=== PATIENT | female | born 1975 | race African-American/Black ===

== ENCOUNTER 2016-10-03 22:10 | Emergency (ER) | payer MEDICAID ==
[~2016-10-03] VITALS: Ht 170.2 cm; Wt 127.0 kg
[~2016-10-03 22:10] MED LIST: AMLO10TA2 PO; AMLO2.5T; HYDR12.527; HYDR25TA4 PO
[2016-10-03 22:15] VITALS: BP 163/103
[2016-10-04] MEDS ORDERED: HYDROcodone-ACET 10/325MG TAB ONE (01:21)
[2016-10-04] MEDS ORDERED: HYDROcodone-ACET 10/325MG TAB PO ONE (01:30)
== END 2016-10-04 01:47 | disposition home or self-care (01) ==
LOC: ER 22:11
DX: S83.411A Sprain of medial collateral ligament of right knee, initial encounter (principal); M19.90 Unspecified osteoarthritis, unspecified site; I10 Essential (primary) hypertension; F17.210 Nicotine dependence, cigarettes, uncomplicated; W01.0XXA Fall on same level from slipping, tripping and stumbling without subsequent striking against object, initial encounter; Y93.89 Activity, other specified; Y99.8 Other external cause status; Y92.89 Other specified places as the place of occurrence of the external cause
CPT/HCPCS: 73560; 81025

== ENCOUNTER 2016-12-14 07:24 | Emergency (ER) | payer MEDICAID ==
[~2016-12-14] VITALS: Ht 170.2 cm; Wt 133.4 kg
[2016-12-14 08:00] VITALS: BP 192/126
[2016-12-14 08:18] LABS: Urine Bilirubin Negative (Negative); Urine Blood 1+ /uL (Negative); Urine Color Yellow (Yellow); Urine Glucose Normal (Normal); Urine Ketone Negative (Negative); Urine Nitrite Negative (Negative); Urine RBC 2 /hpf (0 - 4); Urine Squamous Epithelial Cell FEW /hpf (<5); Urine Urobilinogen Normal (Negative)
[2016-12-14 08:36] LABS: Eosinophils # (auto) 0.1 uL; Monocytes # (auto) 0.7 uL; Neutrophils # (auto) 3.6 uL
[2016-12-14 08:37] LABS: Basophils # (auto) 0.1 uL; Basophils % (auto) 0.8 % (0.0-2.0); Eosinophils % (auto) 1.2 % (0.0-7.0); Hematocrit 33.2 % (36.0-46.0); Hemoglobin 10.9 g/dL (12.2-16.2); Lymphocytes # (auto) 2.1 uL; Lymphocytes % (auto) 32.6 % (10.0-50.0); Mean Corpuscular Hemoglobin 26.4 pg (28.0-32.0); Mean Corpuscular Hgb Conc. 32.7 g/dL (32.0-36.0); Mean Corpuscular Volume 80.8 fL (80.0-100.0); Mean Platelet Volume 8.6 fL (6.9-10.8); Monocytes % (auto) 10.4 % (0.0-12.0); Nucleated Red Blood Cells % 0.2 %; Platelet Count (auto) 320 10^3/uL (140-450); Red Cell Distribution Width 16.5 % (11.8-14.3); White Blood Cell 6.5 10^3/uL (4.4-10.8)
[2016-12-14] MEDS ORDERED: KETOROLAC TROMETH 60MG/2ML VIAL IM ONE (08:45)
[2016-12-14 08:53] LABS: Albumin 3.8 g/dL (3.4-5.0); BUN/Creatinine Ratio 13.2; Bilirubin, Total 0.5 mg/dL (0.2-1.0); Calcium 8.8 mg/dL (8.5-10.1); Potassium 3.6 mmol/L (3.5-5.1); Total Protein 8.1 g/dL (6.4-8.2)
== END 2016-12-14 09:08 | disposition home or self-care (01) ==
LOC: ER 07:24
DX: K42.9 Umbilical hernia without obstruction or gangrene (principal); G89.29 Other chronic pain; M54.5 Low back pain; F17.210 Nicotine dependence, cigarettes, uncomplicated; I10 Essential (primary) hypertension; Z79.899 Other long term (current) drug therapy
CPT/HCPCS: 36415; 74176; 80053; 81001; 85025; 96372; 99285; J1885

== ENCOUNTER 2018-01-13 11:28 | Emergency (ER) | payer MEDICAID ==
[~2018-01-13] VITALS: Ht 170.2 cm; Wt 136.1 kg
[~2018-01-13 11:28] MED LIST changes: +AMLO10TA12 PO; -AMLO10TA2 PO; -AMLO2.5T; +AMLO2.5T6
[2018-01-13] MEDS ORDERED: SODIUM CHLORIDE 0.9% 1,000 ML IVB ONE (12:22)
[2018-01-13] MEDS ORDERED: PROMETHAZINE HCL 25 MG/ML 1ML ONE (12:30)
[2018-01-13] MEDS ORDERED: PROMETHAZINE HCL 25 MG/ML 1ML IV PRN (12:30)
[2018-01-13] MEDS ORDERED: MORPHINE SULFATE 4 MG/ML SYR/VIAL IV ONE (12:30)
[2018-01-13 12:47] LABS: Basophils # (auto) 0.1 uL; Eosinophils # (auto) 0.1 uL; Eosinophils % (auto) 0.8 % (0.0-7.0); Lymphocytes # (auto) 2.5 uL; Lymphocytes % (auto) 39.2 % (10.0-50.0); Monocytes # (auto) 0.6 uL; Neutrophils # (auto) 3.1 uL
[2018-01-13 12:48] LABS: Basophils % (auto) 1.5 % (0.0-2.0); Hematocrit 38.4 % (36.0-46.0); Hemoglobin 12.2 g/dL (12.2-16.2); Mean Corpuscular Hemoglobin 25.8 pg (28.0-32.0); Mean Corpuscular Hgb Conc. 31.8 g/dL (32.0-36.0); Mean Corpuscular Volume 81.1 fL (80.0-100.0); Monocytes % (auto) 9.9 % (0.0-12.0); Neutrophils % (auto) 48.6 % (37.0-80.0); Nucleated Red Blood Cells % 0.1 %; Platelet Count (auto) 402 10^3/uL (140-450); Red Blood Cells 4.73 10^6/uL (4.0-5.20); White Blood Cell 6.4 10^3/uL (4.4-10.8)
[2018-01-13 12:53] LABS: Urine Bacteria NONE SEEN /hpf (None Seen); Urine Blood Negative /uL (Negative); Urine Specific Gravity 1.012 (1.001-1.035); Urine WBC 1 /hpf (0 - 5)
[2018-01-13 13:01] LABS: Albumin 4.2 g/dL (3.4-5.0); Calcium 9.2 mg/dL (8.5-10.1); Potassium 3.2 mmol/L (3.5-5.1)
[2018-01-13 13:05] LABS: BUN/Creatinine Ratio 11.4; Bilirubin, Total 0.6 mg/dL (0.2-1.0); Total Protein 8.7 g/dL (6.4-8.2)
[2018-01-13] MEDS ORDERED: POTASSIUM EFFERVESENT TAB 25 MEQ PO ONE ×2 (15:00→17:30)
[2018-01-13] MEDS ORDERED: SODIUM CHLORIDE 0.9% 1,000 ML IV ONE (15:15)
[2018-01-13] MEDS ORDERED: cloNIDine HCL 0.1 MG TAB PO ONE ×2 (15:15→16:30)
[2018-01-13] MEDS ORDERED: PROCHLORPERAZINE EDISYLATE 5 MG/ML 2ML VIAL IV ONE (16:15)
[2018-01-13] MEDS ORDERED: LABETALOL HCL 5 MG/ML ML 20ML VIAL IV ONE (16:30)
[2018-01-13 17:11] VITALS: BP 168/97
== END 2018-01-13 17:58 | disposition home or self-care (01) ==
LOC: EDSEX 11:28 → ER 11:28 → EDBD 11:28 → ER 17:58
DX: K52.9 Noninfective gastroenteritis and colitis, unspecified (principal); E87.6 Hypokalemia; I10 Essential (primary) hypertension; E66.01 Morbid (severe) obesity due to excess calories; F12.10 Cannabis abuse, uncomplicated; Z68.42 Body mass index [BMI] 45.0-49.9, adult
CPT/HCPCS: 36415; 71045; 74176; 80053; 81001; 81025; 82150; 83690; 83735; 84443; 85025; 93005; 96361; 96374; 96375; 99284; J0780; J2270; J2550; J7030

== ENCOUNTER 2019-06-21 21:29 | Emergency (ER) | payer MEDICAID ==
[~2019-06-21] VITALS: Ht 170.2 cm; Wt 129.3 kg
[~2019-06-21 21:29] MED LIST changes: -AMLO10TA12 PO; +AMLO10TA13 PO; -AMLO2.5T6; +AMLO2.5T7; -HYDR12.527; +HYDR12.55
[2019-06-21 22:16] LABS: Basophils # (auto) 0.1 10 ^3/uL (0-0.2); Eosinophils # (auto) 0.1 10 ^3/uL (0-0.8); Lymphocytes # (auto) 3.3 10 ^3/uL (0.4-5.4); Neutrophils # (auto) 6.3 10 ^3/uL (1.6-8.6)
[2019-06-21 22:17] LABS: Basophils % (auto) 1.2 % (0.0-2.0); Eosinophils % (auto) 0.5 % (0.0-7.0); Hematocrit 37.9 % (36.0-46.0); Hemoglobin 12.4 g/dL (12.2-16.2); Mean Corpuscular Hemoglobin 26.1 pg (28.0-32.0); Mean Corpuscular Hgb Conc. 32.7 g/dL (32.0-36.0); Mean Corpuscular Volume 79.8 fL (80.0-100.0); Monocytes # (auto) 1.1 10 ^3/uL (0-1.3); Monocytes % (auto) 10.4 % (0.0-12.0); Neutrophils % (auto) 57.9 % (37.0-80.0); Platelet Count (auto) 411 10^3/uL (140-450); Red Blood Cells 4.76 10^6/uL (4.0-5.20); White Blood Cell 10.9 10^3/uL (4.4-10.8)
[2019-06-21 22:35] LABS: Calcium 9.6 mg/dL (8.5-10.1)
[2019-06-21 22:38] LABS: BUN/Creatinine Ratio 11.8; Total Protein 9.5 g/dL (6.4-8.2)
[2019-06-21 23:01] LABS: Potassium 2.5 mmol/L (3.5-5.1)
[2019-06-21] MEDS ORDERED: ONDANSETRON HCL 4 MG/2 ML VIAL IV ONE (23:15)
[2019-06-21] MEDS ORDERED: MORPHINE SULFATE 4 MG/ML SYR/VIAL IV ONE (23:15)
[2019-06-22] MEDS: POTASSIUM CHL 20MEQ/100ML 100 ML IV SCH ×2 (00:32→02:53)
[2019-06-22] MEDS ORDERED: methylPREDNISolone SOD SUCC 125 MG/2 ML VL IV ONE (02:30)
[2019-06-22] MEDS ORDERED: ONDANSETRON HCL 4 MG/2 ML VIAL IV ONE (02:30)
[2019-06-22] MEDS ORDERED: diphenhdrAMINE HCL 50 MG/1 ML VL IV ONE (02:30)
[2019-06-22] MEDS ORDERED: MORPHINE SULFATE 4 MG/ML SYR/VIAL IV ONE (02:30)
[2019-06-22] MEDS ORDERED: CLINDAMYCIN 900MG IV 50 ML IV ONE (02:30)
[2019-06-22 04:29] VITALS: BP 122/76
== END 2019-06-22 06:06 | disposition home or self-care (01) ==
LOC: ER 21:30
DX: K29.00 Acute gastritis without bleeding (principal); T78.40XA Allergy, unspecified, initial encounter; J03.90 Acute tonsillitis, unspecified; H66.92 Otitis media, unspecified, left ear; E87.6 Hypokalemia; X58.XXXA Exposure to other specified factors, initial encounter
CPT/HCPCS: 36415; 74176; 80053; 82150; 83690; 85025; 87070; 87804; 87880; 96365; 96366; 96368; 96375; 96376; 99285; J2270; J2405; J2930; J3480; J3490; J7030

== ENCOUNTER → 2019-07-06 | Emergency (ER) | payer MEDICAID ==
[~2019-07-06] VITALS: Ht 170.2 cm; Wt 127.0 kg
[~2019-07-06] MED LIST changes: +HYDROmorphone HCL 2 MG/ML VL IV ONE; +PROCHLORPERAZINE EDISYLATE 5 MG/ML 2ML VIAL IV ONE; +SODIUM CHLORIDE 0.9% 1,000 ML IVB ONE
[2019-07-06 09:18] LABS: Basophils # (auto) 0.1 10 ^3/uL (0-0.2); Eosinophils # (auto) 0.1 10 ^3/uL (0-0.8); Hemoglobin 11.4 g/dL (12.2-16.2); Monocytes # (auto) 0.4 10 ^3/uL (0-1.3)
[2019-07-06 09:19] LABS: Basophils % (auto) 1.2 % (0.0-2.0); Lymphocytes # (auto) 1.9 10 ^3/uL (0.4-5.4); Mean Corpuscular Hemoglobin 26.6 pg (28.0-32.0); Mean Corpuscular Hgb Conc. 32.6 g/dL (32.0-36.0); Mean Corpuscular Volume 81.5 fL (80.0-100.0); Monocytes % (auto) 6.7 % (0.0-12.0); Neutrophils # (auto) 3.6 10 ^3/uL (1.6-8.6); Neutrophils % (auto) 60.1 % (37.0-80.0); Platelet Count (auto) 395 10^3/uL (140-450); Red Blood Cells 4.29 10^6/uL (4.0-5.20)
[2019-07-06 09:21] LABS: Urine Bacteria NONE SEEN /hpf (None Seen); Urine Blood Negative /uL (Negative); Urine Specific Gravity 1.011 (1.001-1.035); Urine WBC 2 /hpf (0 - 5)
[2019-07-06 09:33] LABS: Albumin 3.9 g/dL (3.4-5.0); Magnesium 2.2 mg/dL (1.6-2.6); Potassium 3.5 mmol/L (3.5-5.1)
[2019-07-06 09:38] LABS: BUN/Creatinine Ratio 9.5; Bilirubin, Total 0.6 mg/dL (0.2-1.0); Total Protein 8.4 g/dL (6.4-8.2)
[2019-07-06 12:01] VITALS: BP 160/93
== END | disposition home or self-care (01) ==
LOC: ER 08:11
DX: F12.188 Cannabis abuse with other cannabis-induced disorder (principal); R11.2 Nausea with vomiting, unspecified; I10 Essential (primary) hypertension
CPT/HCPCS: 36415; 80053; 81001; 83690; 83735; 84702; 85025; 93005; 96361; 96374; 96375; 99285; J0780; J1170; J7030

== ENCOUNTER 2022-07-04 11:47 | Inpatient (IN) | payer MEDICAID ==
[~2022-07-04] VITALS: Ht 167.6 cm; Wt 141.4 kg
[~2022-07-04 11:47] MED LIST changes: -AMLO10TA13 PO; +AMLO1TAB21; +AMLO1TAB23 PO; -AMLO2.5T7; -HYDROmorphone HCL 2 MG/ML VL IV ONE; -PROCHLORPERAZINE EDISYLATE 5 MG/ML 2ML VIAL IV ONE; -SODIUM CHLORIDE 0.9% 1,000 ML IVB ONE
[2022-07-04] MEDS ORDERED: ONDANSETRON HCL 4 MG/2 ML VIAL IV ONE (12:00)
[2022-07-04] MEDS ORDERED: SODIUM CHLORIDE 0.9% 1,000 ML IV ONE ×2 (12:00→16:00)
[2022-07-04 12:21] LABS: Basophils # (auto) 0 10 ^3/uL (0-0.2); Eosinophils # (auto) 0 10 ^3/uL (0-0.8); Hemoglobin 9.7 g/dL (12.2-16.2); Monocytes # (auto) 0.3 10 ^3/uL (0-1.3); Neutrophils # (auto) 2.9 10 ^3/uL (1.6-8.6); Red Cell Distribution Width 19.3 % (11.8-14.3); White Blood Cell 4.7 10^3/uL (4.4-10.8)
[2022-07-04 12:22] LABS: Eosinophils % (auto) 0.5 % (0.0-7.0); Hematocrit 32.1 % (36.0-46.0); Lymphocytes # (auto) 1.4 10 ^3/uL (0.4-5.4); Lymphocytes % (auto) 29.9 % (10.0-50.0); Mean Corpuscular Hemoglobin 23.2 pg (28.0-32.0); Mean Corpuscular Hgb Conc. 30.1 g/dL (32.0-36.0); Mean Corpuscular Volume 76.9 fL (80.0-100.0); Monocytes % (auto) 6.6 % (0.0-12.0); Nucleated Red Blood Cells % 0.3 %; Red Blood Cells 4.18 10^6/uL (4.0-5.20)
[2022-07-04 12:53] LABS: Lactic Acid w/Reflex 3.4 mmol/L (0.4-2.0)
[2022-07-04 13:26] LABS: Potassium 3.9 mmol/L (3.5-5.1)
[2022-07-04] MEDS ORDERED: fentaNYL CITRATE 100 MCG/2 ML VL IV ONE (13:30)
[2022-07-04] MEDS ORDERED: MORPHINE SULFATE 4 MG/ML SYR/VIAL IV ONE (13:45)
[2022-07-04 13:46] LABS: Albumin 3.8 g/dL (3.4-5.0); BUN/Creatinine Ratio 9.3 (10.0-20.0); Bilirubin, Total 0.5 mg/dL (0.2-1.0); Calcium 8.8 mg/dL (8.5-10.1); Total Protein 7.8 g/dL (6.4-8.2)
[2022-07-04 14:14] LABS: Urine Bacteria NONE SEEN /hpf (None Seen); Urine Blood Negative /uL (Negative); Urine Specific Gravity 1.009 (1.001-1.035); Urine WBC <1 /hpf (0 - 5)
[2022-07-04] MEDS ORDERED: metroNIDAZOLE 500MG/100ML 100 ML IV ONE (16:00)
[2022-07-04] MEDS ORDERED: HYDROcodone-ACET 5/325MG TAB PO PRN (16:15)
[2022-07-04] MEDS ORDERED: MORPHINE SULFATE INJ 2 MG/ml SYRG IV PRN (16:15)
[2022-07-04] MEDS ORDERED: PANTOPRAZOLE 40 MG/10 ML VIAL INJ IV ONE (16:15)
[2022-07-04] MEDS: SODIUM CHLORIDE 0.9% 1,000 ML IV SCH ×2 (16:15→22:14)
[2022-07-04] MEDS ORDERED: ONDANSETRON HCL 4 MG/2 ML VIAL IV PRN (16:15)
[2022-07-04] MEDS ORDERED: PROMETHAZINE HCL 25 MG/ML 1ML IV ONE (17:15)
[2022-07-04 17:31] LABS: Cholesterol 197 mg/dL (< 200); HDL Cholesterol 47 mg/dL (40-59); LDL Cholesterol 130 mg/dL (< 100); Triglycerides 99 mg/dL (< 150)
[2022-07-04 20:36] LABS: Alcohol, Urine < 3.0 mg/dL (0-10); Amphetamine Screen, Urine NEGATIVE (NEGATIVE); Barbiturate Scree,Urine NEGATIVE (NEGATIVE); Benzodiazephine Screen, Urine NEGATIVE (NEGATIVE); Cannabinoid Screen, Urine POSITIVE (NEGATIVE); Cocaine Screen, Urine NEGATIVE (NEGATIVE)
[2022-07-04 20:44] LABS: Opiate Scree,Urine NEGATIVE (NEGATIVE); Phencyclidine Screen, Urine NEGATIVE (NEGATIVE)
[2022-07-04 21:35] VITALS: BP 148/92
[2022-07-04 22:00] VITALS: BP 148/78
[2022-07-04] MEDS: metroNIDAZOLE 500MG/100ML 100 ML IV SCH (22:11)
[2022-07-05] VITALS (7 sets, daily range): BP systolic 126–169; BP diastolic 72–113
[2022-07-05 05:41] LABS: Basophils # (auto) 0 10 ^3/uL (0-0.2); Eosinophils # (auto) 0.1 10 ^3/uL (0-0.8); Eosinophils % (auto) 0.7 % (0.0-7.0); Hemoglobin 9.6 g/dL (12.2-16.2); Monocytes % (auto) 13.3 % (0.0-12.0); White Blood Cell 7.8 10^3/uL (4.4-10.8)
[2022-07-05 05:44] LABS: Basophils % (auto) 0.4 % (0.0-2.0); Hematocrit 29.5 % (36.0-46.0); Mean Corpuscular Hgb Conc. 32.4 g/dL (32.0-36.0); Mean Corpuscular Volume 74.1 fL (80.0-100.0); Neutrophils # (auto) 3.6 10 ^3/uL (1.6-8.6); Neutrophils % (auto) 46.6 % (37.0-80.0); Nucleated Red Blood Cells % 0.1 %; Red Blood Cells 3.98 10^6/uL (4.0-5.20)
[2022-07-05] MEDS: metroNIDAZOLE 500MG/100ML 100 ML IV SCH ×3 (05:48→22:04)
[2022-07-05 06:05] LABS: BUN/Creatinine Ratio 9.9 (10.0-20.0); Calcium 8.6 mg/dL (8.5-10.1); Potassium 3.1 mmol/L (3.5-5.1)
[2022-07-05] MEDS: PANTOPRAZOLE 40 MG/10 ML VIAL INJ IV SCH (09:34)
[2022-07-05] MEDS: SODIUM CHLORIDE 0.9% 1,000 ML IV SCH ×2 (18:33→22:33)
[2022-07-05] MEDS: hydrALAZINE HCL 20 MG/ML VL IV PRN (18:34)
[2022-07-05] MEDS: ACETAMINOPHEN 325 MG TAB PO PRN (23:08)
[2022-07-06 05:00] VITALS: BP 147/83
[2022-07-06] MEDS: metroNIDAZOLE 500MG/100ML 100 ML IV SCH ×2 (05:46→15:15)
[2022-07-06] MEDS: SODIUM CHLORIDE 0.9% 1,000 ML IV SCH (05:55)
[2022-07-06 08:00] VITALS: BP 162/111
[2022-07-06 09:00] VITALS: BP 162/111
[2022-07-06] MEDS ORDERED: HYDR-4795 (09:14)
[2022-07-06] MEDS ORDERED: LORA-483 PO (09:14)
[2022-07-06] MEDS ORDERED: BACL20TA PO (09:14)
[2022-07-06] MEDS ORDERED: BUPR75TA96 PO (09:14)
[2022-07-06] MEDS ORDERED: NALO1TAB4 PO (09:14)
[2022-07-06] MEDS ORDERED: GABA-1251 PO (09:14)
[2022-07-06] MEDS ORDERED: DULO1CAP6 PO (09:14)
[2022-07-06] MEDS: PANTOPRAZOLE 40 MG/10 ML VIAL INJ IV SCH (09:51)
[2022-07-06] MEDS: hydrALAZINE HCL 20 MG/ML VL IV PRN (09:52)
[2022-07-06] MEDS ORDERED: CIPR-173 PO (10:52)
[2022-07-06] MEDS ORDERED: METR-344 PO (10:52)
[2022-07-06] MEDS ORDERED: ONDA-155 PO (10:55)
[2022-07-06 12:18] VITALS: BP_SYST 131; BP_SYST 160; BP_DIAS 106; BP_DIAS 87
[2022-07-06] MEDS ORDERED: amLODIPine BESYLATE 5 MG TAB PO ONE (12:45)
[2022-07-06] MEDS ORDERED: HCTZ 25 MG TAB PO ONE (12:45)
[2022-07-06 13:00] VITALS: BP 160/106
[2022-07-06] MEDS: ACETAMINOPHEN 325 MG TAB PO PRN (13:16)
== END 2022-07-06 15:15 | disposition home or self-care (01) | DRG 249 ==
LOC: EDSEX 11:47 → EDBD 11:47 → EDUNIT# 11:47 → ER 11:47 → OVERFLOW 16:50 → EAST 21:33
PROVIDERS: ADMIT Registered Nurse; ATTEND Internal Medicine
DX: K52.9 Noninfective gastroenteritis and colitis, unspecified (principal); E87.21 Acute metabolic acidosis; E66.01 Morbid (severe) obesity due to excess calories; D64.9 Anemia, unspecified; I10 Essential (primary) hypertension; Z98.891 History of uterine scar from previous surgery
CPT/HCPCS: 36415; 74176; 80048; 80053; 80061; 80307; 81001; 82270; 83036; 83605; 83690; 84443; 84484; 84702; 85025; 87040; 87086; 96361; 96374; 96375; C9113; G0378; J2405; J3490

== ENCOUNTER 2022-12-29 23:56 | Inpatient (IN) | payer MEDICAID ==
[~2022-12-29] VITALS: Ht 170.2 cm; Wt 139.2 kg
[~2022-12-29 23:56] MED LIST changes: -AMLO1TAB21; -AMLO1TAB23 PO; +ASPI-325 PO; +ATOR20TA50 PO; +BACL20TA PO; +DULO1CAP6 PO; +ERGO1CAP23 PO; +FERR1TAB36 PO; -HYDR12.55; -HYDR25TA4 PO; +LOSA100T30 PO; +METO-289 PO
[2022-12-30 00:10] VITALS: PULSE 97; RESP 18; O2SAT 98
[2022-12-30] MEDS ORDERED: dilTIAZem 25 MG/5 ML VIAL IV ONE ×2 (00:15→00:45)
[2022-12-30] MEDS ORDERED: ONDANSETRON HCL 4 MG/2 ML VIAL IV ONE (00:30)
[2022-12-30 00:36] LABS: Basophils # (auto) 0.1 10 ^3/uL (0-0.2); Basophils % (auto) 0.5 % (0.0-2.0); Eosinophils # (auto) 0 10 ^3/uL (0-0.8); Eosinophils % (auto) 0.1 % (0.0-7.0); Hematocrit 46.2 % (36.0-46.0); Hemoglobin 15.3 g/dL (12.2-16.2); Lymphocytes % (auto) 10.8 % (10.0-50.0); Mean Corpuscular Hemoglobin 29.1 pg (28.0-32.0); Mean Corpuscular Hgb Conc. 33.2 g/dL (32.0-36.0); Mean Corpuscular Volume 87.8 fL (80.0-100.0); Monocytes # (auto) 0.2 10 ^3/uL (0-1.3); Monocytes % (auto) 2.2 % (0.0-12.0); Neutrophils # (auto) 8.2 10 ^3/uL (1.6-8.6); Neutrophils % (auto) 86.4 % (37.0-80.0); Red Blood Cells 5.27 10^6/uL (4.0-5.20); Red Cell Distribution Width 15.9 % (11.8-14.3); White Blood Cell 9.4 10^3/uL (4.4-10.8)
[2022-12-30] MEDS ORDERED: LORazepam 2MG/ML-1ML VIAL IV ONE (00:45)
[2022-12-30 00:51] LABS: INR 1.12 (0.9-1.15); Partial Thromboplastin Time 30.4 SEC (24.5-34.5); Prothrombin Time 11.7 sec (9.3-11.8)
[2022-12-30 00:52] LABS: Alanine Aminotransferase 14 U/L (7-40); Albumin 5.2 g/dL (3.2-4.8); Alkaline Phosphatase 79 U/L (46-116); Anion Gap 14 (5-15); Aspartate Aminotransferase 12 U/L (13-40); BUN/Creatinine Ratio 7.7 (10.0-20.0); Blood Urea Nitrogen 6 mg/dL (9-23); Calcium 9.7 mg/dL (8.7-10.4); Carbon Dioxide 19 mmol/L (20-30); Chloride 102 mmol/L (98-107); Glucose 154 mg/dL (74-106); Magnesium 1.9 mg/dL (1.6-2.6); Potassium 3.3 mmol/L (3.5-5.1); Sodium 135 mmol/L (136-145)
[2022-12-30 00:53] LABS: Bilirubin, Total 1.1 mg/dL (0.2-1.0); Total Protein 8.7 g/dL (5.7-8.2)
[2022-12-30] MEDS ORDERED: dilTIAZem 125mg/125ml BAG KIT 125 ML IV ONE (01:00)
[2022-12-30] MEDS ORDERED: METOCLOPRAMIDE HCL 5MG/ml INJ 2ml VIAL ONE (01:28)
[2022-12-30] MEDS ORDERED: METOCLOPRAMIDE HCL 5MG/ml INJ 2ml VIAL IV ONE (01:30)
[2022-12-30] MEDS ORDERED: IOHEXOL 300 MG/ML 100ML BOTTLE IJ ONE (02:53)
[2022-12-30] MEDS ORDERED: ENOXAPARIN SOD 100 MG/1 ML SYRINGE SC ONE (06:15)
[2022-12-30 08:00] VITALS: PULSE 104; RESP 14; O2SAT 96
[2022-12-30] MEDS ORDERED: POTASSIUM EFFERVESENT TAB 25 MEQ PO ONE (10:15)
[2022-12-30] MEDS ORDERED: ACETAMINOPHEN 325 MG TAB PO PRN (10:30)
[2022-12-30] MEDS ORDERED: MORPHINE SULFATE 4 MG/ML SYR/VIAL IV PRN (10:30)
[2022-12-30] MEDS ORDERED: ERGOCALCIFEROL 50,000 UNIT(1.25MG) CAP PO SCH (10:30)
[2022-12-30] MEDS ORDERED: NITROGLYCERIN 0.4 MG SL TAB SL PRN (10:30)
[2022-12-30] MEDS ORDERED: ONDANSETRON HCL 4 MG/2 ML VIAL IV PRN (10:30)
[2022-12-30 11:13] LABS: INR 1.12 (0.9-1.15); Prothrombin Time 11.7 sec (9.3-11.8)
[2022-12-30 12:00] LABS: Urine Bacteria NONE SEEN /hpf (None Seen); Urine Blood 3+ /uL (Negative); Urine Clarity CLOUDY (Clear); Urine Color Red (Yellow); Urine Protein, UAD 2+ (Negative); Urine Urobilinogen Normal (Negative); Urine WBC 426 /hpf (0 - 5); Urine pH 5.5 (5.0-8.0)
[2022-12-30 12:05] LABS: Urine Specific Gravity > 1.050 (1.001-1.035)
[2022-12-30 12:14] LABS: Amphetamine Screen, Urine Neg (NEGATIVE); Barbiturate Scree,Urine Neg (NEGATIVE); Benzodiazephine Screen, Urine Neg (NEGATIVE); Cocaine Screen, Urine Neg (NEGATIVE); Opiate Scree,Urine Neg (NEGATIVE)
[2022-12-30 12:15] LABS: Cannabinoid Screen, Urine Pos (NEGATIVE); Phencyclidine Screen, Urine Neg (NEGATIVE)
[2022-12-30] MEDS ORDERED: dilTIAZem HCL 180MG ER CAP PO ONE (15:30)
[2022-12-30] MEDS ORDERED: AMIODARONE HCL 200 MG TAB PO ONE (15:30)
[2022-12-30] MEDS ORDERED: ASPirin 81 mg TAB PO ONE (15:30)
[2022-12-30 21:00] VITALS: PULSE 100; RESP 16; O2SAT 97
[2022-12-30] MEDS ORDERED: ATORVASTATIN 20 MG TAB PO SCH (22:00)
[2022-12-30] MEDS ORDERED: METOPROLOL TARTRATE 25 MG TAB PO SCH (22:00)
[2022-12-31] VITALS (9 sets, daily range): BP systolic 106–152; BP diastolic 64–109; PULSE 82–98; RESP 14–18; TEMP 97.7–98.7; O2SAT 93–100
[2022-12-31] MEDS: AMIODARONE HCL 200 MG TAB PO SCH ×3 (01:02→21:57)
[2022-12-31] MEDS: ENOXAPARIN SOD 100 MG/1 ML SYRINGE SC SCH ×2 (01:02→10:03)
[2022-12-31] MEDS: ATORVASTATIN 20 MG TAB PO SCH ×2 (01:02→21:57)
[2022-12-31] MEDS ORDERED: HYDR-3136 (02:03)
[2022-12-31 05:37] LABS: Basophils # (auto) 0.1 10 ^3/uL (0-0.2); Basophils % (auto) 0.6 % (0.0-2.0); Eosinophils # (auto) 0.1 10 ^3/uL (0-0.8); Eosinophils % (auto) 0.7 % (0.0-7.0); Hematocrit 37.9 % (36.0-46.0); Hemoglobin 12.4 g/dL (12.2-16.2); Lymphocytes # (auto) 3.6 10 ^3/uL (0.4-5.4); Lymphocytes % (auto) 40.9 % (10.0-50.0); Mean Corpuscular Hgb Conc. 32.8 g/dL (32.0-36.0); Mean Corpuscular Volume 88.5 fL (80.0-100.0); Monocytes % (auto) 11.8 % (0.0-12.0); Neutrophils # (auto) 4.1 10 ^3/uL (1.6-8.6); Nucleated Red Blood Cells % 0.1 %; Red Blood Cells 4.29 10^6/uL (4.0-5.20); Red Cell Distribution Width 15.8 % (11.8-14.3); White Blood Cell 8.8 10^3/uL (4.4-10.8)
[2022-12-31 05:52] LABS: Alanine Aminotransferase 10 U/L (7-40); Albumin 4.2 g/dL (3.2-4.8); Alkaline Phosphatase 53 U/L (46-116); Anion Gap 9 (5-15); Aspartate Aminotransferase 10 U/L (13-40); BUN/Creatinine Ratio 14.8 (10.0-20.0); Bilirubin, Total 0.8 mg/dL (0.2-1.0); Blood Urea Nitrogen 12 mg/dL (9-23); Calcium 9.2 mg/dL (8.5-10.1); Carbon Dioxide 27 mmol/L (20-30); Chloride 104 mmol/L (98-107); Cholesterol 178 mg/dL (< 200); Glucose 105 mg/dL (74-106); HDL Cholesterol 38 mg/dL (40-59); LDL Cholesterol 131 mg/dL (< 100); Sodium 140 mmol/L (136-145); Total Protein 6.8 g/dL (5.7-8.2); Triglycerides 124 mg/dL (< 150)
[2022-12-31] MEDS ORDERED: POTASSIUM CHL 20 Meq TABLET PO ONE (07:15)
[2022-12-31] MEDS ORDERED: ASPirin-EC 81 mg tab PO SCH (10:00)
[2022-12-31] MEDS ORDERED: ASPirin 81 mg TAB PO SCH (10:00)
[2022-12-31] MEDS ORDERED: METOPROLOL SUCCINATE XL 50 MG TAB PO SCH (10:00)
[2022-12-31] MEDS: ASPirin 81 mg TAB PO SCH (10:03)
[2022-12-31] MEDS: DOCUSATE SOD 100 MG CAP PO SCH (10:03)
[2022-12-31] MEDS: DULoxetine HCL 30 MG CAP PO SCH (10:03)
[2022-12-31] MEDS: dilTIAZem HCL 180MG ER CAP PO SCH (10:04)
[2022-12-31] MEDS ORDERED: POTASSIUM EFFERVESENT TAB 25 MEQ PO ONE ×2 (10:45→13:00)
[2022-12-31] MEDS ORDERED: cefTRIAXone 1GM/50ML D5W 50 ML IV ONE (11:45)
[2022-12-31] MEDS: APIXABAN 5 MG TAB PO SCH (21:57)
[2023-01-01 05:00] VITALS: BP 120/80; PULSE 86; RESP 16; TEMP 98.2; O2SAT 94
[2023-01-01 05:21] LABS: Basophils # (auto) 0.1 10 ^3/uL (0-0.2); Basophils % (auto) 0.7 % (0.0-2.0); Eosinophils # (auto) 0.1 10 ^3/uL (0-0.8); Eosinophils % (auto) 1.9 % (0.0-7.0); Hematocrit 35.8 % (36.0-46.0); Hemoglobin 12.1 g/dL (12.2-16.2); Lymphocytes # (auto) 3.1 10 ^3/uL (0.4-5.4); Lymphocytes % (auto) 41.8 % (10.0-50.0); Mean Corpuscular Hemoglobin 29.8 pg (28.0-32.0); Mean Corpuscular Hgb Conc. 33.7 g/dL (32.0-36.0); Mean Corpuscular Volume 88.2 fL (80.0-100.0); Monocytes % (auto) 13.4 % (0.0-12.0); Neutrophils # (auto) 3.2 10 ^3/uL (1.6-8.6); Neutrophils % (auto) 42.2 % (37.0-80.0); Red Blood Cells 4.06 10^6/uL (4.0-5.20); Red Cell Distribution Width 15.4 % (11.8-14.3); White Blood Cell 7.5 10^3/uL (4.4-10.8)
[2023-01-01 05:31] LABS: Albumin 4.1 g/dL (3.2-4.8); Alkaline Phosphatase 54 U/L (46-116); Anion Gap 7 (5-15); Aspartate Aminotransferase 13 U/L (13-40); BUN/Creatinine Ratio 13.1 (10.0-20.0); Bilirubin, Total 0.8 mg/dL (0.2-1.0); Blood Urea Nitrogen 11 mg/dL (9-23); Calcium 8.7 mg/dL (8.7-10.4); Carbon Dioxide 27 mmol/L (20-30); Chloride 104 mmol/L (98-107); Glucose 121 mg/dL (74-106); Potassium 3.5 mmol/L (3.5-5.1); Sodium 138 mmol/L (136-145); Total Protein 6.7 g/dL (5.7-8.2)
[2023-01-01 05:41] LABS: Alanine Aminotransferase 9 U/L (7-40)
[2023-01-01 08:00] VITALS: PULSE 75; PULSE 84; RESP 18
[2023-01-01 08:54] VITALS: BP 141/91; PULSE 84; RESP 16; TEMP 98.1; O2SAT 98
[2023-01-01] MEDS ORDERED: cefTRIAXone 1GM/50ML D5W 50 ML IV SCH (09:00)
[2023-01-01] MEDS: APIXABAN 5 MG TAB PO SCH (10:40)
[2023-01-01] MEDS: AMIODARONE HCL 200 MG TAB PO SCH (10:40)
[2023-01-01] MEDS: ASPirin 81 mg TAB PO SCH (10:40)
[2023-01-01] MEDS: DOCUSATE SOD 100 MG CAP PO SCH (10:40)
[2023-01-01] MEDS: dilTIAZem HCL 180MG ER CAP PO SCH (10:41)
[2023-01-01] MEDS: DULoxetine HCL 30 MG CAP PO SCH (10:42)
[2023-01-01] MEDS ORDERED: APIX5TAB PO (12:29)
[2023-01-01] MEDS ORDERED: DILT-102 PO (12:29)
[2023-01-01] MEDS ORDERED: METO25TA36 PO (12:29)
[2023-01-01 12:42] VITALS: BP 137/86; PULSE 75; RESP 18; TEMP 98.1; O2SAT 100
[2023-01-01 14:03] VITALS: BP 137/86; PULSE 75; RESP 18; TEMP 98.1; O2SAT 100
== END 2023-01-01 14:50 | disposition home or self-care (01) | DRG 201 ==
LOC: EDBD 23:56 → EDSEX 23:56 → ER 23:56 → TELE 12-30 10:38 → TELE-WESTW 12-30 23:46
PROVIDERS: ADMIT Nurse Practitioner Family; ATTEND Hospitalist
DX: I48.0 Paroxysmal atrial fibrillation (principal); D25.9 Leiomyoma of uterus, unspecified; E66.01 Morbid (severe) obesity due to excess calories; E87.5 Hyperkalemia; N39.0 Urinary tract infection, site not specified; E11.9 Type 2 diabetes mellitus without complications; E87.6 Hypokalemia; F12.90 Cannabis use, unspecified, uncomplicated; E78.5 Hyperlipidemia, unspecified; I10 Essential (primary) hypertension; Z79.01 Long term (current) use of anticoagulants; Z82.49 Family history of ischemic heart disease and other diseases of the circulatory system; Z98.891 History of uterine scar from previous surgery; Z68.42 Body mass index [BMI] 45.0-49.9, adult
CPT/HCPCS: 36415; 71045; 74177; 80053; 80061; 80307; 80320; 81001; 83036; 83735; 83880; 84100; 84443; 84484; 85025; 85610; 85730; 93005; G0378; J0696; J2405

== ENCOUNTER 2024-04-07 14:44 | Inpatient (IN) | payer MEDICAID ==
[~2024-04-07] VITALS: Ht 170.2 cm; Wt 140.3 kg
[~2024-04-07 14:44] MED LIST changes: +APIX5TAB PO; -ASPI-325 PO; -BACL20TA PO; +DILT-102 PO; -ERGO1CAP23 PO; +HYDR-3136; -METO-289 PO; +METO25TA36 PO
--- NOTE | 2024-04-07 15:27 | ED.PDOC ---
General HPI Comments 49 year old female presents to the ED with a chief complaint of LT flank pain onset yesterday (04/06/24). Patient states she began experiencing LT flank pain since yesterday as well as nausea/vomiting, burning with urination. Patient states she has not been able to eat or drink due to symptoms. PMHx HTN,a-fib, anemia. No other symptoms or modifying factors present at this time. Chief Complaint: Flank Pain Time Seen by MD: 15:15 Primary Care Provider: UNKNOWN Reviewed notes: Medications, Allergies Allergies: Coded Allergies: NO KNOWN ALLERGIES (Unverified , 06/14/11) Home Meds Active Scripts Metoprolol Succinate (Toprol Xl) 25 Mg Tab, 1 TAB PO DAILY, #90 TAB 1 Refill Prov:JUANY DIEGO MD 01/01/23 Diltiazem HCl (Diltiazem Hydrochloride E) 180 Mg Cap, 180 MG PO DAILY, #90 CAP Prov:JUANY DIEGO MD 01/01/23 Apixaban Base (ELIQUIS) 5 Mg Tab, 5 MG PO BID, #90 TAB Prov:JUANY DIEGO MD 01/01/23 Ferrous Sulfate (Iron (Ferrous Sulfate)) 50 Mg Tab, 50 MG PO QAM for 30 Days, #30 TAB Prov:JENN MARION MD 09/19/22 Atorvastatin Calcium (ATORVASTATIN CALCIUM) 20 Mg Tab, 20 MG PO HS for 30 Days, #30 TAB Prov:JENN MARION MD 09/19/22 Losartan Potassium & Hydrochlo (Losartan Potassium/Hydroc) 1 Tab Tab, 1 TAB PO DAILY for 30 Days, #30 TAB Prov:JENN MARION MD 09/19/22 Reported Medications Hydrocodone-Acetaminophen (Xodol 5-300 mg) 1 Tab Tab 12/31/22 Duloxetine HCl (Duloxetine HCl) 60 Mg Cap, 1 CAP PO DAILY 07/06/22 Information Source: Patient Mode of Arrival: Ambulatory Severity: Moderate Timing: Days Duration: Since onset Prehospital treatment: None Onset: Spontaneous Symptoms: None History of: None Location: (L)Flank Modifying factors: None associated signs and symptoms: Nausea, Vomiting, Flank Pain, Dysuria Past Medical History PAST MEDICAL HISTORY: AFIB, Anemia, HTN 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 Family History Family History: Reviewed,noncontributory to illness Social History Smoker: Non-Smoker Alcohol: Occasionally Drugs: Marijuana Lives In: Home Constitutional: denies: chills, diaphoresis, fatigue, fever, malaise, sweats, weakness, others EENTM: denies: blurred vision, double vision, ear bleeding, ear discharge, ear drainage, ear pain, ear ringing, eye pain, eye redness, hearing loss, mouth pain, mouth swelling, nasal discharge, nose bleeding, nose congestion, nose pain, photophobia, tearing, throat pain, throat swelling, voice changes, others Respiratory: denies: cough, hemoptysis, orthopnea, SOB at rest, shortness of breath, SOB with excertion, stridor, wheezing, others Cardiovascular: denies: chest pain, dizzy spells, diaphoresis, Dyspnea on exertion, edema, irregular heart beat, left arm pain, lightheadedness, palpitations, PND, syncope, others Gastrointestinal: reports: nausea, vomiting; denies: abdomen distended, abdominal pain, blood streaked bowels, constipated, diarrhea, dysphagia, difficulty swallowing, hematemesis, melena, poor appetite, poor fluid intake, rectal bleeding, rectal pain, others Genitourinary: reports: burning; denies: abnormal vagina bleeding, dyspareunia, dysuria, flank pain, frequency, hematuria, incontinence, pain, , vagina discharge, urgency, others Neurological: denies: dizziness, fainting, headache, left sided numbness, left sided weakness, numbness, paresthesia, pre-existing deficit, right sided numbness, right sided weakness, seizure, speech problems, tingling, tremors, weakness, others Musculoskeletal: denies: back pain, gout, joint pain, joint swelling, muscle pain, muscle stiffness, neck pain, others Integumetry: denies: bruises, change in color, change in hair/nails, dryness, laceration, lesions, lumps, rash, wounds, others Allergic/Immunocompromised: denies: Difficulty Healing, Frequent Infections, Hives, Itching, others Hematologic/Lymphatic: denies: anemia, blood clots, easy bleeding, easy b ruising, swollen glands, others Endocrine: denies: excessive hunger, excessive sweating, excessive thirst, excessive urination, flushing, intolerance to cold, intolerance to heat, unexplained weight gain, unexplained weight loss, others Psychiatric: denies: anxiety, bipolar disorder, depression, hopeless, panic disorder, schizophrenia, sleepless, suicidal, others All Other Systems: Reviewed and Negative Physical Exam General Appearance: Moderate Distress, Normal HEENT: Normal ENT Inspection, Pharynx Normal, TMs Normal Neck: Full Range of Motion, Non-Tender, Normal, Normal Inspection Respiratory: Chest Non-Tender, Lungs Clear, No Accessory Muscle Use, No Respiratory Distress, Normal Breath Sounds Cardiovascular: No Edema, No JVD, No Murmur, No Gallop, Normal Peripheral Pulses, Regular Rate/Rhythm Breast Exam: Deferred Gastrointestinal: No Organomegaly, Non Tender, No Pulsatile Mass, Normal Bowel Sounds, Soft Genitalia: Deferred Pelvic: Deferred Rectal: Deferred Extremities: No calf tenderness, Normal capillary refill, Normal inspection, Normal range of motion, Non-tender, No pedal edema Musculoskeletal : Apperance: Normal Neurologic: Alert, talent scout II-XII nml as Tested, No Motor Deficits, Normal Affect, Normal Mood, No Sensory Deficits Cerebellar Function: Normal Reflexes: Normal Skin: Dry, Normal Color, Warm Peripheral Pulses: 3+ Radial (R), 3+ Radial (L) Lymphatic: No Adenopathy Was a procedure done? Was a procedure done?: No Differential Diagnosis Kidney stone (Female): Musculoskeletal pain, Urinary obstruction, Urolithiasis X-Ray, Labs, Meds, VS Vital Signs Date Time Temp Pulse Resp B/P (MAP) Pulse Ox O2 Delivery O2 Flow Rate FiO2 04/07/24 15:01 97.8 89 16 167/110 (129) 99 Lab Test 04/07/24 16:28 04/07/24 14:45 Range/Units White Blood Count 6.6 4.4-10.8 10^3/uL Red Blood Count 4.35 4.0-5.20 10^6/uL Hemoglobin 10.5 L 12.2-16.2 g/dL Hematocrit 33.4 L 36.0-46.0 % Mean Corpuscular Volume 76.9 L 80.0-100.0 fL Mean Corpuscular Hemoglobin 24.2 L 28.0-32.0 pg Mean Corpuscular Hemoglobin Concent 31.5 L 32.0-36.0 g/dL Red Cell Distribution Width 17.4 H 11.8-14.3 % Platelet Count 434 140-450 10^3/uL Mean Platelet Volume 8.0 6.9-10.8 fL Neutrophils (%) (Auto) 46.6 37.0-80.0 % Lymphocytes (%) (Auto) 40.8 10.0-50.0 % Monocytes (%) (Auto) 9.7 0.0-12.0 % Eosinophils (%) (Auto) 2.0 0.0-7.0 % Basophils (%) (Auto) 0.9 0.0-2.0 % Neutrophils # (Auto) 3.1 1.6-8.6 10 ^3/uL Lymphocytes # (Auto) 2.7 0.4-5.4 10 ^3/uL Monocytes # (Auto) 0.6 0-1.3 10 ^3/uL Eosinophils # (Auto) 0.1 0-0.8 10 ^3/uL Basophils # (Auto) 0.1 0-0.2 10 ^3/uL Nucleated Red Blood Cells 0.1 % Sodium Level Pending Potassium Level Pending Chloride Level Pending Carbon Dioxide Level Pending Anion Gap Pending Blood Urea Nitrogen Pending Creatinine Pending Glomerular Filtration Rate Calc Pending BUN/Creatinine Ratio Pending Serum Glucose Pending Calcium Level Pending Urine Color Pending Urine Clarity Pending Urine pH Pending Urine Specific [place] Pending Urine Protein Pending Urine Ketones Pending Urine Blood Pending Urine Nitrite Pending Urine Bilirubin Pending Urine Urobilinogen Pending Urine Leukocyte Esterase Pending Urine RBC Pending Urine Microscopic WBC Pending Urine Squamous Epithelial Cells Pending Urine Bacteria Pending Urine Glucose Pending Urine Opiates Screen Pending Urine Fentanyl Screen Pending Urine Barbiturates Screen Pending Urine Phencyclidine Screen Pending Urine Amphetamines Screen Pending Urine Benzodiazepines Screen Pending Urine Cocaine Screen Pending Urine Cannabinoids Screen Pending Patient alert. Complaining of abdominal pain. Blood pressure elevated. Saturation pristine on room air. Abdomen is soft. She is mostly tender in the left lower quadrant. Was given clonidine. Was given morphine. Was given Zofran. Reviewed her previous visit. Explained to the patient. Continue cardiac monitoring. CT scan of the abdomen reviewed does show colitis. Was given Rocephin. Was given Flagyl. Time of 1ST Reevaluation: 15:45 Reevaluation 1ST: Unchanged Patient Education/Counseling: Diagnosis, Treatment, Prognosis Family Education/Counseling: No Family Present Departure 1 Departure Time of Disposition: 15:46 Impression: Primary Impression: Non-specific colitis Disposition: ADMITTED INPATIENT Admit to: Med Surg Condition: Guarded Critical Care Note Critical Care Time?: No Stability Stability form required: No Heart Score Heart Score: Heart Score Response (Comments) Value History N/A 0 EKG N/A 0 Age N/A 0 Risk Factors N/A 0 Troponin N/A 0 Total 0 I personally scribed for CARLY OPRTILLO MD ([email or web address]) on 04/07/24 at 15:27. Electronically submitted by Christina Tidwell ([email or web address]). CARLY PORTILLO MD Apr 07, 2024 15:27
[2024-04-07 16:52] LABS: Basophils # (auto) 0.1 10 ^3/uL (0-0.2); Basophils % (auto) 0.9 % (0.0-2.0); Eosinophils # (auto) 0.1 10 ^3/uL (0-0.8); Hematocrit 33.4 % (36.0-46.0); Hemoglobin 10.5 g/dL (12.2-16.2); Lymphocytes # (auto) 2.7 10 ^3/uL (0.4-5.4); Lymphocytes % (auto) 40.8 % (10.0-50.0); Mean Corpuscular Hemoglobin 24.2 pg (28.0-32.0); Mean Corpuscular Hgb Conc. 31.5 g/dL (32.0-36.0); Mean Corpuscular Volume 76.9 fL (80.0-100.0); Monocytes # (auto) 0.6 10 ^3/uL (0-1.3); Monocytes % (auto) 9.7 % (0.0-12.0); Neutrophils # (auto) 3.1 10 ^3/uL (1.6-8.6); Neutrophils % (auto) 46.6 % (37.0-80.0); Nucleated Red Blood Cells % 0.1 %; Platelet Count (auto) 434 10^3/uL (140-450); Red Blood Cells 4.35 10^6/uL (4.0-5.20); Red Cell Distribution Width 17.4 % (11.8-14.3); White Blood Cell 6.6 10^3/uL (4.4-10.8)
--- NOTE | 2024-04-07 16:52 | DVH ---
Exam: CT CT AB PEL WO CON-NO ORAL OR IV History: colitis Comparison Study: None available at time of dictation. TECHNIQUE: Multidetector CT of the abdomen was performed from lung bases to pubic symphysis. Imaging was performed without IV contrast. Axial, coronal and sagittal multiplanar reformats were obtained fr om the axial data set by the technologist. Radiation Dose Information: CT Dose: CTDI volume is 27.32 mGy. Dose-length product is 1434.0 mGy*cm FINDINGS: Evaluation of solid organs is limited due to lack of intravenous contrast use. Findings: Lung Bases: No acute or significant lung base finding. Normal heart size. No pleural or pericardial effusion. Liver: The liver is normal in size. No focal lesions. Gallbladder and Biliary Tree: Unremarkable Spleen: Unremarkable Pancreas: The pancreas is grossly normal in appearance. Adrenal Glands: Unremarkable Kidneys: Kidneys are grossly normal without calculi or hydronephrosis. Bladder: Grossly unremarkable for degree of distention. Bowel: The stomach is grossly normal in appearance. Small bowel and colon are normal in caliber and d istribution. Mucosal thickening in the transverse and left sigmoid colon raising the question of coli tis. The appendix is not visualized; however, no secondary findings of acute appendicitis identified. Ascites: Absent Lymphadenopathy: No mesenteric, retroperitoneal or periportal lymphadenopathy. Abdominal Wall and Mesentery: Unremarkable. Vasculature: The visualized abdominal aorta is normal in size and caliber. Evaluation of abdominal a nd pelvic vessels is limited due to lack of intravenous contrast. Pelvic Organs: Unremarkable Musculoskeletal: No aggressive focal bony lesions, acute fractures or dislocation. Soft tissues: Unremarkable IMPRESSION: 1. Mucosal thickening and findings suggesting colitis throughout the transverse left and sigmoid colo ns. 2. No calcifications in the gallbladder. 3. No nephrolithiasis or hydronephrosis. Radiation optimization: All CT scans at this facility use at least one of these dose optimization vinh hniques: automated exposure control mA and/or kV adjustment per patient size (includes targeted exam s where dose is matched to clinical indication) or iterative reconstruction.
[2024-04-07 16:54] LABS: Chloride 102 mmol/L (98-107); Potassium 3.7 mmol/L (3.5-5.1); Sodium 139 mmol/L (136-145)
[2024-04-07 16:55] LABS: Anion Gap 10 (5-15); Calcium 10.3 mg/dL (8.7-10.4); Carbon Dioxide 27 mmol/L (20-31)
[2024-04-07 16:57] LABS: Urine Bacteria None Seen /hpf (None Seen)
[2024-04-07 17:00] LABS: BUN/Creatinine Ratio 16.3 (10.0-20.0); Blood Urea Nitrogen 15 mg/dL (9-23); Glucose 103 mg/dL (74-106)
[2024-04-07 17:15] LABS: Urine Blood 2+ /uL (Negative); Urine Clarity Clear (Clear); Urine Color Light-Yellow (Yellow); Urine Mucus FEW (None Seen); Urine Protein, UAD Negative (Negative); Urine Specific Gravity 1.023 (1.001-1.035); Urine Squamous Epithelial Cell FEW /hpf (<5); Urine Urobilinogen Normal (Negative); Urine WBC 1 /HPF (0-5)
[2024-04-07 17:29] LABS: Amphetamine Screen, Urine Neg (NEGATIVE); Barbiturate Scree,Urine Neg (NEGATIVE); Benzodiazephine Screen, Urine Neg (NEGATIVE); Cocaine Screen, Urine Neg (NEGATIVE); Opiate Scree,Urine Neg (NEGATIVE); Phencyclidine Screen, Urine Neg (NEGATIVE)
[2024-04-07 17:30] LABS: Cannabinoid Screen, Urine Pos (NEGATIVE)
[2024-04-07] MEDS: cefTRIAXone 1GM/50ML D5W 50 ML IV ONE (18:27)
[2024-04-07] MEDS: ONDANSETRON HCL 4 MG/2 ML VIAL IV ONE (18:27)
[2024-04-07] MEDS: MORPHINE SULFATE INJ 2 MG/ml SYRG IV ONE (18:27)
[2024-04-07 18:29] VITALS: PULSE 74; RESP 18; O2SAT 97
[2024-04-07] MEDS ORDERED: ONDANSETRON HCL 4 MG/2 ML VIAL IV PRN (19:00)
[2024-04-07] MEDS ORDERED: TEMAZEPAM 15 MG CAP PO PRN (19:00)
[2024-04-07] MEDS ORDERED: ACETAMINOPHEN 325 MG TAB PO PRN (19:00)
--- NOTE | 2024-04-07 20:47 | DVHHP2 ---
History of Present Illness Reason for Visit: Abdominal pain History of Present Illness 49-year-old female presents for evaluation of abdominal pain. Patient endorses a a two day history of left-sided lower abdominal pain. She describes the pain as sharp nonradiating. Today she developed severe nausea with episodes of diarrhea. Reports chills. Denies melena. No cardiac or respiratory symptoms. Past Medical History Hypertension, AFib and Past Surgical History Family History Noncontributory Smoke: No ALCOHOL: none Drugs: None Lives: with Family Review of Systems Review of Systems Review of systems are currently negative otherwise addressed in HPI. Allergies: Coded Allergies: NO KNOWN ALLERGIES (Unverified , 06/14/11) Medications Current Medications Medications Dose Ordered Sig/Savage Route Start Time Stop Time Status Last Admin Dose Admin Diltiazem HCl 180 mg DAILY PO 04/08/24 10:00 Duloxetine HCl 60 mg DAILY PO 04/08/24 10:00 Atorvastatin Calcium 20 mg HS PO 04/07/24 22:00 Ferrous Sulfate 325 mg DAILY PO 04/08/24 10:00 Losartan Potassium 100 mg DAILY PO 04/08/24 10:00 Hydrochlorothiazide 25 mg DAILY PO 04/08/24 10:00 Ceftriaxone Sodium 50 ml @ 100 mls/hr DAILY@09 IV 04/08/24 09:00 Metronidazole 100 ml @ 100 mls/hr Q8HR IV 04/07/24 22:00 Acetaminophen/ Hydrocodone Bitart 1 tab Q4HP PRN PO 04/07/24 19:00 Temazepam 15 mg QHSP PRN PO 04/07/24 19:00 Ondansetron HCl 4 mg Q4HP PRN IV 04/07/24 19:00 Acetaminophen 650 mg Q6HP PRN PO 04/07/24 19:00 Exam Vital Signs Vital Signs Date Time Temp Pulse Resp B/P (MAP) Pulse Ox O2 Delivery O2 Flow Rate FiO2 04/07/24 18:54 74 18 170/97 04/07/24 18:29 98.4 97 98.4 04/07/24 18:29 Room Air* 0 21 Exam Gen: 49-year-old female in mild distress. Skin: Warm, dry, normal color and texture, no rash. HEENT: Normocephalic atraumatic, mucous membranes moist and pink. Neck: Cervical and supraclavicular nodes normal without enlargement, trachea is midline, thyroid gland is normal without masses. Pulmonary: Clear to auscultation and percussion bilaterally. Cardiac: Regular rate and rhythm. No murmur Abdomen: Soft, left lower quadrant tenderness, nondistended, bowel sounds present all 4 quadrants, no guarding, no rigidity, no organomegaly. Extremities: No cyanosis, clubbing, no edema Neuro: Cranial nerves II through XII grossly intact, normal affect and speech, no focal motor deficits. Labs/Xrays ORDERING PHYSICIAN: CARLY PORTILLO MD PROCEDURE(s): ABPL - CT AB PEL WO CON-NO ORAL OR IV REASON: colitis ORDER NUMBER(s): [id number], ACCESSION NUMBER(s): [id number] Exam: CT CT AB PEL WO CON-NO ORAL OR IV History: colitis Comparison Study: None available at time of dictation. TECHNIQUE: Multidetector CT of the abdomen was performed from lung bases to pubic symphysis. Imaging was performed without IV contrast. Axial, coronal and sagittal multiplanar reformats were obtained from the axial data set by the technologist. Radiation Dose Information: CT Dose: CTDI volume is 27.32 mGy. Dose-length product is 1434.0 mGy*cm FINDINGS: Evaluation of solid organs is limited due to lack of intravenous contrast use. Findings: Lung Bases: No acute or significant lung base finding. Normal heart size. No pleural or pericardial effusion. Liver: The liver is normal in size. No focal lesions. Gallbladder and Biliary Tree: Unremarkable Spleen: Unremarkable Pancreas: The pancreas is grossly normal in appearance. Adrenal Glands: Unremarkable Kidneys: Kidneys are grossly normal without calculi or hydronephrosis. Bladder: Grossly unremarkable for degree of distention. Bowel: The stomach is grossly normal in appearance. Small bowel and colon are normal in caliber and distribution. Mucosal thickening in the transverse and left sigmoid colon raising the question of colitis. The appendix is not visualized; however, no secondary findings of acute appendicitis identified. Ascites: Absent Lymphadenopathy: No mesenteric, retroperitoneal or periportal lymphadenopathy. Abdominal Wall and Mesentery: Unremarkable. Vasculature: The visualized abdominal aorta is normal in size and caliber. Evaluation of abdominal and pelvic vessels is limited due to lack of intravenous contrast. Pelvic Organs: Unremarkable Musculoskeletal: No aggressive focal bony lesions, acute fractures or dislocation. Soft tissues: Unremarkable IMPRESSION: 1. Mucosal thickening and findings suggesting colitis throughout the transverse left and sigmoid colons. 2. No calcifications in the gallbladder. 3. No nephrolithiasis or hydronephrosis. Radiation optimization: All CT scans at this facility use at least one of these dose optimization techniques: automated exposure control mA and/or kV adjustment per patient size (includes targeted exams where dose is matched to clinical indication) or iterative reconstruction. Labs Test 04/07/24 16:28 04/07/24 14:45 Range/Units White Blood Count 6.6 4.4-10.8 10^3/uL Red Blood Count 4.35 4.0-5.20 10^6/uL Hemoglobin 10.5 L 12.2-16.2 g/dL Hematocrit 33.4 L 36.0-46.0 % Mean Corpuscular Volume 76.9 L 80.0-100.0 fL Mean Corpuscular Hemoglobin 24.2 L 28.0-32.0 pg Mean Corpuscular Hemoglobin Concent 31.5 L 32.0-36.0 g/dL Red Cell Distribution Width 17.4 H 11.8-14.3 % Platelet Count 434 140-450 10^3/uL Mean Platelet Volume 8.0 6.9-10.8 fL Neutrophils (%) (Auto) 46.6 37.0-80.0 % Lymphocytes (%) (Auto) 40.8 10.0-50.0 % Monocytes (%) (Auto) 9.7 0.0-12.0 % Eosinophils (%) (Auto) 2.0 0.0-7.0 % Basophils (%) (Auto) 0.9 0.0-2.0 % Neutrophils # (Auto) 3.1 1.6-8.6 10 ^3/uL Lymphocytes # (Auto) 2.7 0.4-5.4 10 ^3/uL Monocytes # (Auto) 0.6 0-1.3 10 ^3/uL Eosinophils # (Auto) 0.1 0-0.8 10 ^3/uL Basophils # (Auto) 0.1 0-0.2 10 ^3/uL Nucleated Red Blood Cells 0.1 % Sodium Level 139 136-145 mmol/L Potassium Level 3.7 3.5-5.1 mmol/L Chloride Level 102 98-107 mmol/L Carbon Dioxide Level 27 20-31 mmol/L Anion Gap 10 5-15 Blood Urea Nitrogen 15 9-23 mg/dL Creatinine 0.92 0.550-1.02 mg/dL Glomerular Filtration Rate Calc 76 >90 mL/min BUN/Creatinine Ratio 16.3 10.0-20.0 Serum Glucose 103 74-106 mg/dL Calcium Level 10.3 8.7-10.4 mg/dL Urine Color Light-yellow Yellow Urine Clarity Clear Clear Urine pH 5.0 5.0-9.0 Urine Specific [place] 1.023 1.001-1.035 Urine Protein Negative Negative Urine Ketones Negative Negative Urine Blood 2+ H Negative /uL Urine Nitrite Negative Negative Urine Bilirubin Negative Negative Urine Urobilinogen Normal Negative mg/dL Urine Leukocyte Esterase Negative Negative /uL Urine RBC 3 0 - 4 /hpf Urine Microscopic WBC 1 0-5 /HPF Urine Squamous Epithelial Cells Few <5 /hpf Urine Bacteria None seen None Seen /hpf Urine Mucus Few None Seen Urine Glucose Normal Normal mg/dL Urine Opiates Screen Neg NEGATIVE Urine Fentanyl Screen Neg NEGATIVE Urine Barbiturates Screen Neg NEGATIVE Urine Phencyclidine Screen Neg NEGATIVE Urine Amphetamines Screen Neg NEGATIVE Urine Benzodiazepines Screen Neg NEGATIVE Urine Cocaine Screen Neg NEGATIVE Urine Cannabinoids Screen Pos NEGATIVE Assessment/Plan Assessment/Plan Assessment Acute colitis Acute abdominal pain Accelerated hypertension Iron-deficiency anemia History of atrial fibrillation Secondary coagulopathy Plan Admit the patient to [facility] to the hospitalist Rocephin/Flagyl Clear liquid diet Resume home medications pain management Continue treatment per orders Plan discussed with: Patient My Orders Orders - ANABEL FERRELL AGACNP Procedure Category Date Status Time Diltiazem Er Capsule PHA 04/08/24 In Process (Cardizem La Capsul 10:00 Duloxetine Hcl PHA 04/08/24 In Process Capsule (Cymbalta 10:00 Atorvastatin (Lipitor) PHA 04/07/24 In Process 22:00 Ferrous Sulfate Tablet PHA 04/08/24 In Process 10:00 Losartan Tablet PHA 04/08/24 In Process (Cozaar Tablet) 10:00 Hydrochlorothiazide PHA 04/08/24 In Process Tablet (Hydrochlorot 10:00 Ceftriaxone 1gm/50ml PHA 04/08/24 In Process D5w (Rocephin) 09:00 Metronidazole PHA 04/07/24 In Process 500mg/100ml (Flagyl 22:00 Basic Metabolic Panel LAB 04/08/24 Verified 04:00 Admit ADMIT 04/07/24 Transmitted 18:49 Hydrocodone-Acet PHA 04/07/24 In Process 5/325mg Tab ([place] 19:00 Temazepam (Restoril) PHA 04/07/24 In Process 19:00 Ondansetron Hcl PHA 04/07/24 In Process (Zofran) 19:00 Complete Blood Count LAB 04/08/24 Verified 04:00 Condition: Stable ANDREAS 04/07/24 In Process 18:49 Acetaminophen Tablet PHA 04/07/24 In Process (Tylenol Tablet) 19:00 Clear Liq Diet DIET 04/08/24 Transmitted Breakfast Bedrest With Bathroom ANDREAS 04/07/24 In Process Privileg 18:49 Date of Service: Apr 07, 2024 Billing Provider: ANABEL FERRELL Common Visit Codes: [id number] INP/OBS CARE (HIGH) ANABEL FERRELL Apr 07, 2024 20:47
[2024-04-07 22:30] VITALS: BP 157/107; PULSE 74; RESP 18; TEMP 98.1; O2SAT 98
[2024-04-07] MEDS: HYDROcodone-ACET 5/325MG TAB PO PRN (22:39)
[2024-04-07] MEDS: ATORVASTATIN 20 MG TAB PO SCH (22:52)
[2024-04-07] MEDS: metroNIDAZOLE 500MG/100ML 100 ML IV SCH (22:52)
[2024-04-07 23:16] VITALS: PULSE 74; RESP 18; O2SAT 98
[2024-04-08 01:00] VITALS: BP 146/94; PULSE 63; RESP 18; TEMP 97.7; O2SAT 96
[2024-04-08 05:00] VITALS: BP 152/96; PULSE 69; RESP 18; TEMP 97.6; O2SAT 98
[2024-04-08 07:36] LABS: Chloride 101 mmol/L (98-107); Potassium 3.5 mmol/L (3.5-5.1); Sodium 138 mmol/L (136-145)
[2024-04-08 07:37] LABS: Anion Gap 11 (5-15); Basophils # (auto) 0 10 ^3/uL (0-0.2); Calcium 10.1 mg/dL (8.7-10.4); Carbon Dioxide 26 mmol/L (20-31); Eosinophils # (auto) 0.1 10 ^3/uL (0-0.8); Hemoglobin 10.4 g/dL (12.2-16.2); Lymphocytes # (auto) 2.3 10 ^3/uL (0.4-5.4); Monocytes # (auto) 0.7 10 ^3/uL (0-1.3); Neutrophils # (auto) 2.8 10 ^3/uL (1.6-8.6); Red Cell Distribution Width 17.1 % (11.8-14.3); White Blood Cell 5.9 10^3/uL (4.4-10.8)
[2024-04-08 07:40] LABS: Basophils % (auto) 0.4 % (0.0-2.0); Eosinophils % (auto) 1.4 % (0.0-7.0); Hematocrit 32.3 % (36.0-46.0); Lymphocytes % (auto) 38.5 % (10.0-50.0); Mean Corpuscular Hemoglobin 24.7 pg (28.0-32.0); Mean Corpuscular Hgb Conc. 32.2 g/dL (32.0-36.0); Mean Corpuscular Volume 76.8 fL (80.0-100.0); Monocytes % (auto) 11.7 % (0.0-12.0); Platelet Count (auto) 416 10^3/uL (140-450); Red Blood Cells 4.21 10^6/uL (4.0-5.20)
[2024-04-08 07:43] LABS: BUN/Creatinine Ratio 14.1 (10.0-20.0); Blood Urea Nitrogen 11 mg/dL (9-23); Glucose 103 mg/dL (74-106)
[2024-04-08 07:47] VITALS: BP 145/90; PULSE 70; RESP 18; TEMP 98.6; O2SAT 100
[2024-04-08] MEDS: metroNIDAZOLE 500MG/100ML 100 ML IV ONE (07:54)
[2024-04-08 09:01] LABS: Bilirubin, Direct 0.2 mg/dL (<0.3); Bilirubin, Total 0.6 mg/dL (0.2-1.0); Total Protein 7.8 g/dL (5.7-8.2)
[2024-04-08 09:08] LABS: INR 1.04 (0.9-1.15); Partial Thromboplastin Time 29.6 SEC (24.5-34.5)
[2024-04-08] MEDS: cefTRIAXone 1GM/50ML D5W 50 ML IV SCH (09:28)
[2024-04-08] MEDS: dilTIAZem HCL 180MG ER CAP PO SCH (09:29)
[2024-04-08] MEDS: LOSARTAN POTASSIUM 50 MG TAB PO SCH (09:29)
[2024-04-08] MEDS: DULoxetine HCL 30 MG CAP PO SCH (09:30)
[2024-04-08] MEDS: hydroCHLOROthiazide 25 MG TAB PO SCH (09:30)
[2024-04-08] MEDS: FERROUS SULFATE 325mg EC TAB PO SCH (09:30)
--- NOTE | 2024-04-08 10:29 | ECG ---
[facility] Test Date: 2024-04-08 Test Time: 10:28:24 Pat Name: LIZ DOWNEY Department: holding Room: [address] [place] [address] Gender: F Biomedical Photographer: [email or web address] prado : 1975 Requested By: JAROD DORSEY Order Number: [id number] Reading MD: Measurements Intervals [place] Rate: 78 P: 68 VA: 151 QRS: 14 QRSD: 111 T: 21 QT: 419 QTc: 478 Interpretive Statements Sinus rhythm Low voltage, precordial leads Baseline wander in lead(s) III,aVL Please click the below link to view image of tracing.
[2024-04-08 10:39] LABS: Beta HCG, Quantitative 0.5 mIU/mL (1.5-4.2); Thyroid Stimulating Hormone 1.11 uIU/mL (0.55-4.78)
[2024-04-08] MEDS ORDERED: AUG875T PO (12:04)
[2024-04-08] MEDS ORDERED: PANT40T PO (12:04)
[2024-04-08] MEDS ORDERED: IBUP-1310 PO (12:04)
[2024-04-08] MEDS: ERGOCALCIFEROL 50,000 UNIT(1.25MG) CAP PO SCH (12:15)
[2024-04-08 12:22] VITALS: BP 142/94; PULSE 80; RESP 16; TEMP 97.8; O2SAT 94
[2024-04-08] MEDS: KETOROLAC TROMETH 30 MG/ML 1ML VIAL IV ONE (12:32)
[2024-04-08] MEDS: POTASSIUM EFFERVESENT TAB 25 MEQ PO ONE (12:45)
[2024-04-08] MEDS: CYANOCOBALAMIN (B-12) 1000 MCG/1 ML VIAL IM ONE (12:46)
[2024-04-08] MEDS: PANTOPRAZOLE 40 MG/10 ML VIAL INJ IV ONE (12:46)
--- NOTE | 2024-04-08 15:35 | DVHDSRES ---
Discharge Summary Date of Admission Resident Creating Document: JAROD DORSEY RESIDENT Apr 07, 2024 at 18:49 Date of Discharge: Apr 08, 2024 Labs/Diagnostic Data: Laboratory Results Test 04/08/24 07:43 04/08/24 06:34 04/07/24 14:45 Prothrombin Time 11.0 sec (9.3-11.8) Prothrombin Time INR 1.04 (0.9-1.15) Activated Partial Thromboplast Time 29.6 SEC (24.5-34.5) Hemoglobin A1c 4.9 % A1C (<5.7) Magnesium Level 2.0 mg/dL (1.6-2.6) Total Bilirubin 0.6 mg/dL (0.2-1.0) Direct Bilirubin 0.2 mg/dL (<0.3) Aspartate Amino Transferase (AST) 12 U/L (13-40) Alanine Aminotransferase (ALT) 18 U/L (7-40) Alkaline Phosphatase 84 U/L (46-116) Troponin I High Sensitivity 3 ng/L (</=34) Total Protein 7.8 g/dL (5.7-8.2) Albumin 5.0 g/dL (3.2-4.8) Vitamin B12 Level 410 pg/mL (211-911) Vitamin D 25-Hydroxy 11.3 ng/mL (30.0-100) Thyroid Stimulating Hormone (TSH) 1.11 uIU/mL (0.55-4.78) Beta HCG, Quantitative 0.5 mIU/mL (1.5-4.2) White Blood Count 5.9 10^3/uL (4.4-10.8) Red Blood Count 4.21 10^6/uL (4.0-5.20) Hemoglobin 10.4 g/dL (12.2-16.2) Hematocrit 32.3 % (36.0-46.0) Mean Corpuscular Volume 76.8 fL (80.0-100.0) Mean Corpuscular Hemoglobin 24.7 pg (28.0-32.0) Mean Corpuscular Hemoglobin Concent 32.2 g/dL (32.0-36.0) Red Cell Distribution Width 17.1 % (11.8-14.3) Platelet Count 416 10^3/uL (140-450) Mean Platelet Volume 8.2 fL (6.9-10.8) Neutrophils (%) (Auto) 48.0 % (37.0-80.0) Lymphocytes (%) (Auto) 38.5 % (10.0-50.0) Monocytes (%) (Auto) 11.7 % (0.0-12.0) Eosinophils (%) (Auto) 1.4 % (0.0-7.0) Basophils (%) (Auto) 0.4 % (0.0-2.0) Neutrophils # (Auto) 2.8 10 ^3/uL (1.6-8.6) Lymphocytes # (Auto) 2.3 10 ^3/uL (0.4-5.4) Monocytes # (Auto) 0.7 10 ^3/uL (0-1.3) Eosinophils # (Auto) 0.1 10 ^3/uL (0-0.8) Basophils # (Auto) 0 10 ^3/uL (0-0.2) Nucleated Red Blood Cells 0.0 % Sodium Level 138 mmol/L (136-145) Potassium Level 3.5 mmol/L (3.5-5.1) Chloride Level 101 mmol/L (98-107) Carbon Dioxide Level 26 mmol/L (20-31) Anion Gap 11 (5-15) Blood Urea Nitrogen 11 mg/dL (9-23) Creatinine 0.78 mg/dL (0.550-1.02) Glomerular Filtration Rate Calc 92 mL/min (>90) BUN/Creatinine Ratio 14.1 (10.0-20.0) Serum Glucose 103 mg/dL (74-106) Calcium Level 10.1 mg/dL (8.7-10.4) Urine Color Light-yellow (Yellow) Urine Clarity Clear (Clear) Urine pH 5.0 (5.0-9.0) Urine Specific [place] 1.023 (1.001-1.035) Urine Protein Negative (Negative) Urine Ketones Negative (Negative) Urine Blood 2+ /uL (Negative) Urine Nitrite Negative (Negative) Urine Bilirubin Negative (Negative) Urine Urobilinogen Normal mg/dL (Negative) Urine Leukocyte Esterase Negative /uL (Negative) Urine RBC 3 /hpf (0 - 4) Urine Microscopic WBC 1 /HPF (0-5) Urine Squamous Epithelial Cells Few /hpf (<5) Urine Bacteria None seen /hpf (None Seen) Urine Mucus Few (None Seen) Urine Glucose Normal mg/dL (Normal) Urine Opiates Screen Neg (NEGATIVE) Urine Fentanyl Screen Neg (NEGATIVE) Urine Barbiturates Screen Neg (NEGATIVE) Urine Phencyclidine Screen Neg (NEGATIVE) Urine Amphetamines Screen Neg (NEGATIVE) Urine Benzodiazepines Screen Neg (NEGATIVE) Urine Cocaine Screen Neg (NEGATIVE) Urine Cannabinoids Screen Pos (NEGATIVE) Other Laboratory Tests 04/08/24 06:34 Brief Hx & Hospital Course: 49-year-old female the past medical history of paroxysmal atrial fibrillation and hypertension presents for evaluation of abdominal pain. Patient endorses a a two day history of left-sided lower abdominal pain. She describes the pain as sharp nonradiating. Today she developed severe nausea with episodes of diarrhea. Reports chills. Denies melena. No cardiac or respiratory symptoms. During the hospitalization, patient reported that she went outside to dine out along with family and her on the son-in-law and grandchild developed diarrhea. She also reported quadrant abdominal pain-nausea & vomiting, could not keep any fluids including liquids down. CT abdomen completed, shows Mucosal thickening and findings suggesting colitis throughout the transverse left and sigmoid colons. No calcifications in the gallbladder. She was started on IV ceftriaxone and metronidazole which he received for 2 days. Clear liquid diet was started which the patient tolerated. It was advanced to full liquid diet, patient felt better, pain was controlled with Tylenol and IV ketorolac. Patient also reported 1 episode of atypical chest pain prior to coming to the hospital which lasted for couple of minutes, was sharp, midline sternal, nonradiating, not associated with diaphoresis in his. EKG and troponins were unremarkable. 04/08/24-patient is hemodynamically stable, clinically stable and therefore is being discharged home with diabetic amoxicillin clavulanate 875 p.o. b.i.d. for the next 5 days along with pantoprazole 40 mg daily for the next 30 days. Discharge diagnosis: Intractable nausea and vomiting Intractable abdominal pain, secondary to gastroenteritis, likely etiologies infectious Acute colitis Accelerated hypertension Iron-deficiency anemia History of atrial fibrillation Secondary coagulopathy Consults/Reason for consult ORDERING PHYSICIAN: CARLY PORTILLO MD PROCEDURE(s): ABPL - CT AB PEL WO CON-NO ORAL OR IV REASON: colitis ORDER NUMBER(s): [id number], ACCESSION NUMBER(s): [id number] Exam: CT CT AB PEL WO CON-NO ORAL OR IV History: colitis Comparison Study: None available at time of dictation. TECHNIQUE: Multidetector CT of the abdomen was performed from lung bases to pubic symphysis. Imaging was performed without IV contrast. Axial, coronal and sagittal multiplanar reformats were obtained from the axial data set by the technologist. Radiation Dose Information: CT Dose: CTDI volume is 27.32 mGy. Dose-length product is 1434.0 mGy*cm FINDINGS: Evaluation of solid organs is limited due to lack of intravenous contrast use. Findings: Lung Bases: No acute or significant lung base finding. Normal heart size. No pleural or pericardial effusion. Liver: The liver is normal in size. No focal lesions. Gallbladder and Biliary Tree: Unremarkable Spleen: Unremarkable Pancreas: The pancreas is grossly normal in appearance. Adrenal Glands: Unremarkable Kidneys: Kidneys are grossly normal without calculi or hydronephrosis. Bladder: Grossly unremarkable for degree of distention. Bowel: The stomach is grossly normal in appearance. Small bowel and colon are normal in caliber and distribution. Mucosal thickening in the transverse and left sigmoid colon raising the question of colitis. The appendix is not visualized; however, no secondary findings of acute appendicitis identified. Ascites: Absent Lymphadenopathy: No mesenteric, retroperitoneal or periportal lymphadenopathy. Abdominal Wall and Mesentery: Unremarkable. Vasculature: The visualized abdominal aorta is normal in size and caliber. Evaluation of abdominal and pelvic vessels is limited due to lack of intravenous contrast. Pelvic Organs: Unremarkable Musculoskeletal: No aggressive focal bony lesions, acute fractures or dislocation. Soft tissues: Unremarkable IMPRESSION: 1. Mucosal thickening and findings suggesting colitis throughout the transverse left and sigmoid colons. 2. No calcifications in the gallbladder. 3. No nephrolithiasis or hydronephrosis. Radiation optimization: All CT scans at this facility use at least one of these dose optimization techniques: automated exposure control mA and/or kV adjustment per patient size (includes targeted exams where dose is matched to clinical indication) or iterative reconstruction. ATED BY: RASHI THOMAS Jr., DO DICTATED DATE/TIME: 04/07/241649 SIGNED BY: RASHI THOMAS Jr., SIGNED DATE/TIME: 04/07/241649 CC: Condition at Discharge: Stable Final Diagnosis/Problems List Intractable nausea and vomiting Intractable abdominal pain, secondary to gastroenteritis, likely etiologies infectious Acute colitis Accelerated hypertension Iron-deficiency anemia History of atrial fibrillation Secondary coagulopathy Discharge Disposition: Home Discharge Instruct/Medications Diet: See Comment Diet comment: Continue full liquid diet for 1 week, then advanced as tolerated Activity: No Restrictions, As Tolerated Follow Up/Referral: Follow up with primary care physician within 7 days Follow up with discharge clinic appointment within 7 days Medications: Per EMR Discharge Statement: "Patient was advised to return to the ER or call 911 if any headaches, dizziness, shortness of breath, chest pain, abdominal pain, bleeding, fevers, or worsening of medical condition. Patient was counseled about treatment plan, medications, possible side effects, patientverbalized understanding. All questions were answered to the best of my ability. This discharge took greater then 30 minutes in planning, reviewing documentation, counseling the patient, and discussing with other team members." ASSESSMENT ASSESSMENT Assessment Intractable nausea and vomiting Intractable abdominal pain, secondary to gastroenteritis, likely etiologies infectious Acute colitis Accelerated hypertension Iron-deficiency anemia History of atrial fibrillation Secondary coagulopathy JAROD DORSEY RESIDENT Apr 08, 2024 15:35
[2024-04-08 15:37] VITALS: BP 140/89; PULSE 80; RESP 16; TEMP 97.8; O2SAT 94
[2024-04-08] MEDS ORDERED: APIXABAN 5 MG TAB PO SCH (22:00)
[2024-04-08] MEDS ORDERED: ATORVASTATIN 20 MG TAB PO SCH (22:00)
== END 2024-04-08 16:15 | disposition home or self-care (01) | DRG 248 ==
LOC: ER 14:44 → OVERFLOW 18:49
PROVIDERS: ADMIT Student in an Organized Health Care Education/Training Program; ATTEND Student in an Organized Health Care Education/Training Program
DX: A04.9 Bacterial intestinal infection, unspecified (principal); D68.9 Coagulation defect, unspecified; D50.9 Iron deficiency anemia, unspecified; I48.91 Unspecified atrial fibrillation; I10 Essential (primary) hypertension; Z79.899 Other long term (current) drug therapy; Z98.891 History of uterine scar from previous surgery
CPT/HCPCS: 36415; 74176; 80048; 80076; 80307; 81001; 82306; 82607; 83036; 83735; 84443; 84484; 84702; 85025; 85610; 85730; 93005; 96365; 96375; G0378; J1885; J2405; J2470; J3490